=== PATIENT | male | born 1935 | race Caucasian/White ===

== ENCOUNTER 2020-02-04 08:29 | Day surgery (SDC) | payer MEDICARE ==
[2020-02-03 11:27] VITALS: BMI 24.9
[2020-02-04 09:05] LABS: #Eosinphils 0.5 thou/uL (0.0-0.7); #Monocytes 0.7 thou/uL (0.11-0.59); #Neutrophils 3.6 thou/uL (1.40-6.50); %Basophils 0.8 % (0.0-1.0); %Lymphocytes 17.3 % (21.0-51.0); %Monocytes 11.4 % (0.0-10.0); %Neutrophils 62.5 % (42.0-75.0); Hemoglobin 12.1 g/dL (14.0-18.0); INR-International Normal Ratio 1.1; Mean Corpuscular HGB CONC 32.8 g/dL (32.0-36.0); Mean Corpuscular Hemoglobin 31.6 pg (27.0-31.0); Mean Corpuscular Volume 96.5 fL (78.0-98.0); PTT 30.3 SEC (22.9-36.1); Prothrombin Time 13.8 SEC (12.0-14.7); RBC Distribution Width 13.3 % (11.5-14.5); Red Blood Cell (RBC) Count 3.81 mill/uL (4.70-6.10); White Blood Cell (WBC) Count 5.7 thou/uL (4.8-10.8)
[2020-02-04 09:12] LABS: Mean Platelet Volume 7.2 fL (7.4-10.4); Platelet Count 107 thou/uL (130-400); Platelet Morphology Comment Appears Decreased; RBC Morphology Normal
[2020-02-04 12:47] VITALS: BP 117/59; TEMP 97.8
--- NOTE | 2020-02-04 15:09 | CT ---
PROCEDURE: [facility] PROVIDED CLINICAL HISTORY: Incomplete bladder emptying. BPH. Chronic indwelling Caballero catheter. COMPARISON: None TECHNIQUE: The procedure including the risks and complications were explained to the patient, and informed conse nt was obtained. The patient was placed on the CT scan table in the supine position. Caballero catheter was clamped on patient's arrival to radiology. Limited noncontrasted CT scan was performed through th e pelvis which demonstrated a decompressed urinary bladder. Urinary bladder was distended with approximately 200 mL of normal saline. An area overlying the midportion of the urinary bladder was ma rked, and the area was meticulously prepped and draped in usual sterile fashion. Skin and subcutaneous tissues were infiltrated with buffered 1% lidocaine for local anesthesia. A sma ll skin incision was made. A 14 Japanese suprapubic catheter with stiff inner cannula and trocar were advanced into the urinary bladder. The suprapubic catheter was advanced, and the inner cannula and tr ocar were removed. There was a return of clear urine. The distal balloon was filled with 10 mL of sterile water and placed to gravity drainage. Follow-up axial noncontrasted CT images demonstrates elder prapubic catheter within the urinary bladder. The catheter was secured in place utilizing 2-0 Ethilon suture material, and a dry sterile dressing was placed. The patient tolerated the procedure well and without immediate complication. Patient was briefly loan tored in radiology department and then transported to Dr. Hilliard's office as requested. IMPRESSION: Technically successful CT-guided placement of a 14 Japanese suprapubic catheter in the urinary bladder.
== END 2020-02-04 12:18 | disposition home or self-care (01) ==
LOC: MERGE 08:29 → CT 08:29
PROVIDERS: ATTEND Urology
PROC: 0T9B30Z Drainage of Bladder with Drainage Device, Percutaneous Approach (ICD-10-PCS; principal; 2020-02-04)
DX: N40.1 Benign prostatic hyperplasia with lower urinary tract symptoms (principal); R39.14 Feeling of incomplete bladder emptying; N39.498 Other specified urinary incontinence; G47.30 Sleep apnea, unspecified; I48.0 Paroxysmal atrial fibrillation; I13.0 Hypertensive heart and chronic kidney disease with heart failure and stage 1 through stage 4 chronic kidney disease, or unspecified chronic kidney disease; N18.4 Chronic kidney disease, stage 4 (severe); I50.42 Chronic combined systolic (congestive) and diastolic (congestive) heart failure; M10.9 Gout, unspecified; Z87.891 Personal history of nicotine dependence; Z79.01 Long term (current) use of anticoagulants; Z79.899 Other long term (current) drug therapy
CPT/HCPCS: 51102; 77002; 85025; 85610; 85730; C2627